=== PATIENT | male | born 2000 | race Caucasian/White ===

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

== ENCOUNTER → 2020-10-24 | Outpatient (CLI) | payer BC | END | disposition home or self-care (01) | LOC: RAD 08:25 | PROVIDERS: ATTEND Family Medicine | DX: N44.2 Benign cyst of testis (principal); N43.3 Hydrocele, unspecified | CPT/HCPCS: 76870; 93976 ==